=== PATIENT | female | born 1940 | race Caucasian/White ===

== ENCOUNTER 2021-03-27 10:49 | Inpatient (IN) | payer MEDICARE, MEDICAID, SELFPAY ==
[~2021-03-27] VITALS: Ht 157.5 cm; Wt 64.4 kg
[2021-03-27 11:09] VITALS: BP 141/40
--- NOTE | 2021-03-27 13:03 | NUR ---
TO ER BED 10A
[2021-03-27 13:11] LABS: BASOPHILS % (AUTO) 0.3 % (0.0-2.0); EOSINOPHILS % (AUTO) 0.1 % (0.0-4.0); HEMATOCRIT 34.2 % (36-48); HEMOGLOBIN 11.8 g/dL (12.0-16.0); LYMPHOCYTES % (AUTO) 16.8 % (20.5-51.1); MEAN CORPUSCULAR HEMOGLOBIN 37 pg (27-31); MEAN CORPUSCULAR HGB CONC 35 g/dL (33-37); MEAN CORPUSCULAR VOLUME 107.7 fL (80-94); MONOCYTES # (AUTO) 0.4 K/uL (0.8-1.0); MONOCYTES % (AUTO) 7.6 % (1.7-9.3); NEUTROPHILS # (AUTO) 4.4 K/uL (1.8-7.7); NEUTROPHILS % (AUTO) 75.2 % (42.2-75.2); PLATELET COUNT (AUTO) 60 K/uL (140-450); RED BLOOD CELL COUNT(AUTO) 3.18 MIL/uL (4.20-5.40); RED CELL DISTRIBUTION WIDTH 16.8 % (11.6-13.7); WHITE BLOOD COUNT (AUTO) 5.8 K/uL (4.8-10.8)
--- NOTE | 2021-03-27 13:11 | NUR ---
COVID NOVEL, COVID DRE, AND INFLUENZA SWAB COLLECTED BEDISD AND WALKED TO LAB
[2021-03-27 13:30] LABS: ALBUMIN 3.5 g/dL (3.4-5.0); ANION GAP 12.1 (8-16); ASPARTATE AMINOTRANSFERASE 41 U/L (15-37); CARBON DIOXIDE 26.4 mmol/L (21-32); CHLORIDE 92 mmol/L (98-107); CREATININE 1.8 mg/dL (0.6-1.3); GLUCOSE 104 mg/dL (74-106); POTASSIUM 3.5 mmol/L (3.5-5.1); SODIUM SERUM 127 mmol/L (136-145); TOTAL BILIRUBIN 0.6 mg/dL (0.0-1.0); UREA NITROGEN, BLOOD 25 mg/dL (7-18)
--- NOTE | 2021-03-27 13:38 | NUR ---
BLOODWORK COLLECTED FROM IV AND WALKED OVER TO LAB
--- NOTE | 2021-03-27 13:40 | NUR ---
Joanne ahn in ED - 03/27/21 at 1417 by [email or web address] PT PROVIDED WITH FRESH LINEN AND DIAPER BEDSIDE. PT ASSISTED TO BEDSIDE COMMODE AND ASSISTED BADK TO BED AFTER
[2021-03-27] MEDS ORDERED: DOXYCYCLINE 100 MG in DEXTROSE 5% 100 ML IV ONE (13:50)
--- NOTE | 2021-03-27 13:50 | NUR ---
BED SIDE COMMODE IN PLACE. PT ASSISTED ONTO COMMODE WITHOUT INCIDENT.
[2021-03-27] MEDS ORDERED: cefTRIAXone 1,000 MG VIAL ONE (13:52)
--- NOTE | 2021-03-27 14:05 | NUR ---
PT WITH ONE BOWEL MOVEMENT. LINENS AND GOWN CHANGED. CHUCKS APPLIED AND DIAPER CHANGED. ALL PT NEEDS MET. PT PLACED BACK ONTO PULSE OXIMETRY SPO2 99% REMAINS ON O2 VIA NC. BED LOCKED IN LOWEST POSITION, SIDE RAILS X 2.
--- NOTE | 2021-03-27 14:09 | NUR ---
80 Y/O FEMALE BIBA FROM HOME C/O GEN WEAK [id number]. PT BS 137. DENIES FEVER/CHILLS. DENIES N/V. PT CURRENTLY DENIES ANY PAIN, SOB, CHEST PAIN AT THIS TIME. PT STATED SHE HAS FELT FATIGUE AND OVERALL WEAK. BREATH SOUNDS DIMISHED THROUGHOUT AT THIS TIME, BUT PT CURRENTLY 100% RA. PT A&OX4, SKIN DRY AND INTACT PMH: HTN, HYPOTHYROID NKA
[2021-03-27] MEDS ORDERED: OSELTAMIVIR PHOSPHATE 75 MG CAP PO ONE (14:15)
--- NOTE | 2021-03-27 14:15 | NUR ---
Patient appears to be resting comfortably in bed. Vital Signs within normal limits. Respirations even and unlabored.
[2021-03-27] MEDS ORDERED: DEXAMETHASONE 10 MG/ML VIAL IVP ONE (14:20)
[2021-03-27] MEDS ORDERED: DOXYCYCLINE 100 MG VIAL IV ONE (14:22)
--- NOTE | 2021-03-27 14:45 | NUR ---
CT CONSENT SIGNED AND PLACED INTO PATIENT CHART. PT UNABLE TO SIGN DUE TO ALOC
--- NOTE | 2021-03-27 14:56 | NUR ---
PT TAKEN TO CT VIA RIKI
--- NOTE | 2021-03-27 15:07 | NUR ---
PT RETURNED FROM CT VIA RDE BEQUE TO BED 10B
--- NOTE | 2021-03-27 16:31 | NUR ---
PT ADMITTED UNDER DR. HINKLE TO TELE. PT CURRENTLY TELE HOLD IN ED BED 10B
--- NOTE | 2021-03-27 17:49 | NUR ---
Patient appears to be resting comfortably in bed. Vital Signs within normal limits. Respirations even and unlabored.
--- NOTE | 2021-03-27 19:15 | NUR ---
RECIEVED SHIFT REPORT FROM AKUA CORRIGAN TO ASSUME CARE OF PT.
--- NOTE | 2021-03-27 19:25 | NUR ---
PT LYING IN BED WITH EYES CLOSED, APPEARS TO BE ASLEEP. EQUAL RISE AND FALL OF CHEST. NO ACUTE DISTRESS NOTED AT THIS TIME. WILL CONTINUE TO MONITOR PT.
--- NOTE | 2021-03-27 19:25 | NUR ---
Pt report given to AKUA ROYAL. Transfer of care at this time.
--- NOTE | 2021-03-27 23:45 | NUR ---
PT LYING IN BED WITH EYES CLOSED APPEARS TO BE SLEEPING. EQUAL RISE AND FALL OF CHEST. NO ACUTE DISTRESS AT THIS TIME WILL CONTINUE TO MONITOR PT.
--- NOTE | 2021-03-28 03:57 | NUR ---
ALERT AND ORIENTED X4. EQUAL RISE AND FALL OF CHEST. RN PROVIDED INCONTINENCE CARE, PT URINATED AND SOFT, BROWN BM. RN REPOSITIONED PT FOR COMFORT. PROVIDED WARM BLANKETS FOR COMFORT. WILL CONTINUE TO MONITOR PT.
--- NOTE | 2021-03-28 06:16 | NUR ---
PT LYING IN BED WITH EYES CLOSED, APPEARS TO BE SLEEP. NO ACUTE DISTRESS AT THIS TIME. EQUAL RISE AND FALL OF THE CHEST. ALL VS ARE STABLE. WARM BLANKETS PROVIDED FOR COMFORT. WILL CONTINUE TO MONITOR.
--- NOTE | 2021-03-28 07:11 | NUR ---
REPORT RECEIVED FROM AKUA ROYAL FOR TRANSFER OF CARE
--- NOTE | 2021-03-28 07:12 | NUR ---
REPORT GIVEN TO AKUA CORRIGAN TO ASSUME CARE OF PT.
[2021-03-28] MEDS ORDERED: cefTRIAXone 1,000 MG VIAL ONE (08:29)
--- NOTE | 2021-03-28 08:41 | NUR ---
PT PROVIDED WITH BREAKFAST TRAY BEDSIDE. PT CURRENTLY EATING BREAKFAST AT THIS TIME
[2021-03-28] MEDS ORDERED: AZITHROMYCIN 1,000 MG in DEXTROSE 5% 500 ML IV SCH ×4 (09:00)
[2021-03-28] MEDS ORDERED: ZOLPIDEM 5 MG TAB PO PRN (10:20)
[2021-03-28] MEDS ORDERED: LORazepam 2 MG/ML VIAL IM/IVP PRN (10:20)
[2021-03-28] MEDS ORDERED: POTASSIUM CHLORIDE 10 MEQ TABER PO PRN (10:20)
[2021-03-28] MEDS ORDERED: DOCUSATE SODIUM 100 MG GELCAP PO PRN (10:20)
[2021-03-28] MEDS ORDERED: ALBUTEROL HFA MDI 90 MCG/ACTUATION 8 GM INH PRN (10:20)
[2021-03-28] MEDS ORDERED: HYDROcodone/APAP 5/325 MG 1 TAB TAB PO PRN (10:20)
[2021-03-28] MEDS ORDERED: MORPHINE SULFATE 2 MG/ML SYR IVP PRN (10:20)
[2021-03-28] MEDS ORDERED: ONDANSETRON 4 MG/2 ML VIAL IM/IVP PRN (10:20)
[2021-03-28] MEDS ORDERED: ACETAMINOPHEN 325 MG TAB PO PRN (10:20)
[2021-03-28] MEDS ORDERED: MAG SULF 2000 MG/WATER PREMIX 50 ML IV PRN (10:20)
[2021-03-28] MEDS ORDERED: AZITHROMYCIN 500 MG INJ VIAL IV ONE (11:00)
[2021-03-28] MEDS: AZITHROMYCIN 500 MG in DEXTROSE 5% 250 ML IV SCH (11:30)
--- NOTE | 2021-03-28 11:32 | NUR ---
Patient appears to be resting comfortably in bed. Vital Signs within normal limits. Respirations even and unlabored.
[2021-03-28 12:03] LABS: BASOPHILS % (AUTO) 0.1 % (0.0-2.0); HEMATOCRIT 32.1 % (36-48); LYMPHOCYTES # (AUTO) 0.7 K/uL (2.5-16.5); LYMPHOCYTES % (AUTO) 10.4 % (20.5-51.1); MEAN CORPUSCULAR HEMOGLOBIN 37 pg (27-31); MEAN CORPUSCULAR HGB CONC 34 g/dL (33-37); MEAN CORPUSCULAR VOLUME 107.9 fL (80-94); MONOCYTES # (AUTO) 0.3 K/uL (0.8-1.0); MONOCYTES % (AUTO) 4.3 % (1.7-9.3); NEUTROPHILS # (AUTO) 5.5 K/uL (1.8-7.7); NEUTROPHILS % (AUTO) 85.2 % (42.2-75.2); PLATELET COUNT (AUTO) 58 K/uL (140-450); RED BLOOD CELL COUNT(AUTO) 2.98 MIL/uL (4.20-5.40); RED CELL DISTRIBUTION WIDTH 16.5 % (11.6-13.7); WHITE BLOOD COUNT (AUTO) 6.5 K/uL (4.8-10.8)
[2021-03-28 12:51] LABS: PROTHROMBIN TIME 9.7 secs (10.8-13.4)
[2021-03-28] MEDS: NACL 0.9% 1,000 ML IV SCH (12:55)
[2021-03-28 13:00] LABS: CHOL/HDL RATIO 2.6 (1-4.5)
--- NOTE | 2021-03-28 13:03 | NUR ---
PT PROVIDED WITH LUNCH TRAY, BUT IS REFUSING AT THIS TIME
--- NOTE | 2021-03-28 13:15 | NUR ---
PT HAD BM BEDSIDE. PT PROVIDED WITH YENNI CARE AND FRESH DIAPER BEDSIDE.
[2021-03-28 13:40] LABS: THYROID STIMULATING HORMONE 0.58 uIU/mL (0.34-3.74)
--- NOTE | 2021-03-28 13:59 | NUR ---
PT PROVIDED WITH BELONGINGS BEDSIDE
--- NOTE | 2021-03-28 16:33 | NUR ---
Patient appears to be resting comfortably in bed. Vital Signs within normal limits. Respirations even and unlabored.
--- NOTE | 2021-03-28 18:04 | NUR ---
Patient appears to be resting comfortably in bed. Vital Signs within normal limits. Respirations even and unlabored. PT REPOSTIONED IN BED FOR COMFORT AT THIS TIME
--- NOTE | 2021-03-28 19:29 | NUR ---
Pt report given to AKUA MARCUS. Transfer of care at this time.
[2021-03-28] MEDS ORDERED: OSELTAMIVIR PHOSPHATE 30 MG CAP PO SCH (21:00)
[2021-03-28] MEDS ORDERED: OSELTAMIVIR PHOSPHATE 75 MG CAP PO SCH (21:00)
--- NOTE | 2021-03-28 21:27 | NUR ---
DR SWEENEY HERE TO EXAMINE PT
--- NOTE | 2021-03-28 23:00 | NUR ---
INCONTINENT OF LARGE AMOUNT URINE. DIAPER CHANGED. YENNI CARE DONE, LINENS CHANGED
[2021-03-29] MEDS: NACL 0.9% 1,000 ML IV SCH ×4 (06:20→18:35)
--- NOTE | 2021-03-29 07:30 | NUR ---
REPORT RECEVIED FROM [place] FOR CONTINUITY OF CARE. PT AWAKE, A&OX4. ON NASAL CANNULA 2LPM. IV SITE LT HAND 20G, INTACT, PATENT, GOOD BLOOD RETURN. SKIN INTACT, WARM AND DRY. WILL CONTINUE TO MONITOR.
[2021-03-29 08:06] LABS: BASOPHILS % (AUTO) 0.1 % (0.0-2.0); HEMOGLOBIN 9.9 g/dL (12.0-16.0); LYMPHOCYTES # (AUTO) 0.6 K/uL (2.5-16.5); MONOCYTES # (AUTO) 0.4 K/uL (0.8-1.0); NEUTROPHILS # (AUTO) 6.7 K/uL (1.8-7.7); PLATELET COUNT (AUTO) 53 K/uL (140-450)
[2021-03-29 08:26] LABS: HEMATOCRIT 28.7 % (36-48); MEAN CORPUSCULAR HEMOGLOBIN 37 pg (27-31); MEAN CORPUSCULAR HGB CONC 35 g/dL (33-37); MEAN CORPUSCULAR VOLUME 107.2 fL (80-94); MONOCYTES % (AUTO) 4.8 % (1.7-9.3); NEUTROPHILS % (AUTO) 87.1 % (42.2-75.2); RED BLOOD CELL COUNT(AUTO) 2.67 MIL/uL (4.20-5.40); RED CELL DISTRIBUTION WIDTH 16.6 % (11.6-13.7); WHITE BLOOD COUNT (AUTO) 7.7 K/uL (4.8-10.8)
[2021-03-29 08:44] LABS: ALBUMIN 2.9 g/dL (3.4-5.0); ANION GAP 14.1 (8-16); ASPARTATE AMINOTRANSFERASE 31 U/L (15-37); CARBON DIOXIDE 24.7 mmol/L (21-32); CHLORIDE 98 mmol/L (98-107); CREATININE 1.3 mg/dL (0.6-1.3); GLUCOSE 99 mg/dL (74-106); LACTATE DEHYDROGENASE 210 U/L (81-234); MAGNESIUM 2.4 mg/dL (1.8-2.4); PHOSPHORUS 4.1 mg/dL (2.5-4.9); POTASSIUM 3.8 mmol/L (3.5-5.1); SODIUM SERUM 133 mmol/L (136-145); TOTAL BILIRUBIN 0.3 mg/dL (0.0-1.0); UREA NITROGEN, BLOOD 49 mg/dL (7-18)
[2021-03-29] MEDS: ZINC SULF 220 MG CAP PO SCH ×3 (09:00→21:00)
--- NOTE | 2021-03-29 10:24 | NUR ---
PATIENT HAS BEEN SCREENED AND CATEGORIZED LOW NUTRITION RISK. PATIENT WILL BE SEEN WITHIN 7 DAYS OF ADMISSION. 04/03/[address]
[2021-03-29] MEDS: ASCORBIC ACID 500 MG TAB PO SCH (11:30)
[2021-03-29] MEDS: VITAMIN D 400 IU TAB PO SCH (11:30)
[2021-03-29] MEDS: OSELTAMIVIR PHOSPHATE 30 MG CAP PO SCH ×2 (11:31→21:00)
[2021-03-29] MEDS: AZITHROMYCIN 500 MG in DEXTROSE 5% 250 ML IV SCH (11:33)
--- NOTE | 2021-03-29 12:00 | NUR ---
PT PROVIDED WITH LUNCH TRAY
--- NOTE | 2021-03-29 12:31 | NUR ---
DR BRIDGES AT BEDSIDE EXAMINING PT
--- NOTE | 2021-03-29 13:34 | NUR ---
PT HAD 1 VOID, CLEANED PT. DIAPER CHANGED
--- NOTE | 2021-03-29 14:46 | NUR ---
ECHO BEING PERFORMED AT [facility]
--- NOTE | 2021-03-29 16:30 | NUR ---
Patient appears to be resting comfortably in bed. Vital Signs within normal limits. Respirations even and unlabored. ON 2L NASAL CANNULA.
--- NOTE | 2021-03-29 18:30 | NUR ---
PT HAD 1 BOWEL MOVEMENT AND 1 VOID. PT CLEANED AND DIAPER CHANGED
--- NOTE | 2021-03-29 18:48 | NUR ---
PT PROVIDED WITH DINNER TRAY
--- NOTE | 2021-03-29 19:27 | NUR ---
Pt report given to SMITHA FATIMA. Transfer of care at this time.
--- NOTE | 2021-03-29 21:00 | NUR ---
ALL DUE MEDS WAS ADMINISTERED , TOLERATED WELL.
--- NOTE | 2021-03-30 00:08 | NUR ---
Patient appears to be resting comfortably in bed. Vital Signs within normal limits. Respirations even and unlabored.
--- NOTE | 2021-03-30 04:59 | NUR ---
WALKED OVER URINE TO LAB
[2021-03-30 05:30] LABS: APPEARANCE,URINE CLEAR (CLEAR); BILIRUBIN,URINE NEGATIVE (NEGATIVE); BLOOD, URINE TRACE-I (NEGATIVE); COLOR,URINE YELLOW (YELLOW); LEUKOCYTE ESTERASE ,URINE NEGATIVE (NEGATIVE); NITRITE, URINE NEGATIVE (NEGATIVE); UGLUCOSE NEGATIVE (NEGATIVE)
--- NOTE | 2021-03-30 07:30 | NUR ---
received pt in [facility] aox4. denies pain or discomfort. nsr on monitor. iv intact and patent infusing fluids per order. breathing unlabored. 94% ra. vss. no acute distress noted. safety maintained.
[2021-03-30] MEDS ORDERED: AZITHROMYCIN 500 MG INJ VIAL IV ONE (09:30)
[2021-03-30] MEDS ORDERED: cefTRIAXone 1,000 MG VIAL ONE (09:30)
[2021-03-30] MEDS: ZINC SULF 220 MG CAP PO SCH (09:57)
[2021-03-30] MEDS: ASCORBIC ACID 500 MG TAB PO SCH (09:57)
[2021-03-30] MEDS: VITAMIN D 400 IU TAB PO SCH (09:57)
[2021-03-30] MEDS: AZITHROMYCIN 500 MG in DEXTROSE 5% 250 ML IV SCH (09:57)
[2021-03-30] MEDS ORDERED: ASPI-1205 PO (10:22)
[2021-03-30] MEDS ORDERED: DEC1 PO (10:22)
[2021-03-30] MEDS ORDERED: TAM75 PO (10:22)
[2021-03-30] MEDS ORDERED: CEPH-588 PO (10:22)
[2021-03-30 10:38] LABS: ALBUMIN 2.9 g/dL (3.4-5.0); ANION GAP 9.2 (8-16); ASPARTATE AMINOTRANSFERASE 25 U/L (15-37); CARBON DIOXIDE 27.3 mmol/L (21-32); CHLORIDE 101 mmol/L (98-107); CREATININE 0.9 mg/dL (0.6-1.3); GLUCOSE 102 mg/dL (74-106); LACTATE DEHYDROGENASE 195 U/L (81-234); MAGNESIUM 2.6 mg/dL (1.8-2.4); PHOSPHORUS 2.4 mg/dL (2.5-4.9); POTASSIUM 4.5 mmol/L (3.5-5.1); SODIUM SERUM 133 mmol/L (136-145); TOTAL BILIRUBIN 0.3 mg/dL (0.0-1.0); UREA NITROGEN, BLOOD 39 mg/dL (7-18)
[2021-03-30 11:03] LABS: BASOPHILS % (AUTO) 0.1 % (0.0-2.0); HEMATOCRIT 27.8 % (36-48); HEMOGLOBIN 9.7 g/dL (12.0-16.0); LYMPHOCYTES # (AUTO) 0.6 K/uL (2.5-16.5); LYMPHOCYTES % (AUTO) 10.1 % (20.5-51.1); MEAN CORPUSCULAR HEMOGLOBIN 37 pg (27-31); MEAN CORPUSCULAR HGB CONC 35 g/dL (33-37); MEAN CORPUSCULAR VOLUME 107.5 fL (80-94); MONOCYTES # (AUTO) 0.4 K/uL (0.8-1.0); MONOCYTES % (AUTO) 6.4 % (1.7-9.3); NEUTROPHILS # (AUTO) 5.3 K/uL (1.8-7.7); NEUTROPHILS % (AUTO) 83.4 % (42.2-75.2); PLATELET COUNT (AUTO) 52 K/uL (140-450); RED BLOOD CELL COUNT(AUTO) 2.59 MIL/uL (4.20-5.40); RED CELL DISTRIBUTION WIDTH 16.4 % (11.6-13.7); WHITE BLOOD COUNT (AUTO) 6.3 K/uL (4.8-10.8)
[2021-03-30 12:07] LABS: T4 (THYROXINE) 4.6 ug/dL (4.5-12.0)
--- NOTE | 2021-03-30 13:08 | NUR ---
spoke to sister states will be here 30-60 min for dc home
[2021-03-30 15:13] VITALS: BP 128/80
== END 2021-03-30 15:13 | disposition home or self-care (01) | DRG 177 ==
LOC: MED 10:49 → EDBD 10:49 → MED 16:30 → MMU 16:51
DX: U07.1 COVID-19 (principal); J12.82 Pneumonia due to coronavirus disease 2019; N17.0 Acute kidney failure with tubular necrosis; J96.01 Acute respiratory failure with hypoxia; J10.08 Influenza due to other identified influenza virus with other specified pneumonia; E87.2 Acidosis; D68.59 Other primary thrombophilia; E87.1 Hypo-osmolality and hyponatremia; E03.9 Hypothyroidism, unspecified; I10 Essential (primary) hypertension; D64.9 Anemia, unspecified; E86.0 Dehydration
CPT/HCPCS: 36415; 71045; 71275; 80053; 81001; 82140; 83036; 83605; 83615; 83690; 83735; 83880; 84100; 84134; 84436; 84443; 85025; 85379; 85610; 85651; 85730; 86140; 87040; 87804; 93005; 96365; 96367; 96375; 99291; J0456; J0696; J1100; J3490; J7060; Q0092; Q9967; U0003